=== PATIENT | male | born 1995 | race African-American/Black ===

== ENCOUNTER 2016-07-21 07:05 | Emergency (ER) | payer BC ==
[~2016-07-21] VITALS: Ht 175.3 cm; Wt 106.8 kg
[2016-07-21 07:07] VITALS: BP 190/97; PULSE 67; TEMP 98.7
[2016-07-21] MEDS ORDERED: FLEXERIL 1010 MG/TAB PO (08:51)
== END 2016-07-21 09:04 | disposition home or self-care (01) ==
LOC: COL.ER 07:05
DX: S16.1XXA Strain of muscle, fascia and tendon at neck level, initial encounter (principal); M54.89 Other dorsalgia; V43.62XA Car passenger injured in collision with other type car in traffic accident, initial encounter; Y92.410 Unspecified street and highway as the place of occurrence of the external cause; F17.210 Nicotine dependence, cigarettes, uncomplicated; R40.2412 Glasgow coma scale score 13-15, at arrival to emergency department
CPT/HCPCS: J1885; J2360

== ENCOUNTER 2017-06-11 21:04 | Emergency (ER) | payer BC ==
[~2017-06-11] VITALS: Ht 177.8 cm; Wt 104.5 kg
[~2017-06-11 21:04] MED LIST: FLEXERIL 1010 MG/TAB PO
[2017-06-11 21:07] VITALS: TEMP 97.5
[2017-06-11] MEDS ORDERED: AMOXICILLIN 50500 MG PO (22:18)
[2017-06-11] MEDS ORDERED: MAGIC MOUTH PO (22:18)
[2017-06-11 22:38] VITALS: BP 147/100; PULSE 51
== END 2017-06-11 22:40 | disposition home or self-care (01) ==
LOC: COL.ER 21:04
DX: J02.9 Acute pharyngitis, unspecified (principal); F17.210 Nicotine dependence, cigarettes, uncomplicated
CPT/HCPCS: J8540